=== PATIENT | male | born 1980 | race African-American/Black ===

== ENCOUNTER 2018-03-15 10:59 | Emergency (ER) | payer MEDICAID ==
[~2018-03-15] VITALS: Ht 182.9 cm; Wt 181.4 kg
[2018-03-15 11:04] VITALS: BP_SYST 117
[2018-03-15 11:41] VITALS: BP_SYST 128
== END 2018-03-15 11:41 | disposition home or self-care (01) ==
LOC: SED 10:59
DX: L02.416 Cutaneous abscess of left lower limb (principal); E11.9 Type 2 diabetes mellitus without complications; F17.200 Nicotine dependence, unspecified, uncomplicated
CPT/HCPCS: 99283

== ENCOUNTER 2018-03-15 20:06 | Emergency (ER) | payer MEDICAID ==
[~2018-03-15] VITALS: Ht 182.9 cm; Wt 181.4 kg
[2018-03-15 20:16] VITALS: BP_SYST 179
[2018-03-15] MEDS ORDERED: LIDOCAINE/EPI 1% 1:100000 20 ML VIAL INJ ONE (20:30)
[2018-03-15 21:26] VITALS: BP_SYST 148
== END 2018-03-15 21:26 | disposition home or self-care (01) ==
LOC: SED 20:06
DX: L02.416 Cutaneous abscess of left lower limb (principal); R03.0 Elevated blood-pressure reading, without diagnosis of hypertension; E11.9 Type 2 diabetes mellitus without complications
CPT/HCPCS: 99284

== ENCOUNTER 2018-03-17 18:32 | Emergency (ER) | payer MEDICAID ==
[~2018-03-17] VITALS: Ht 182.9 cm; Wt 181.4 kg
[2018-03-17 18:41] VITALS: BP_SYST 159
[2018-03-17 20:13] VITALS: BP_SYST 144
== END 2018-03-17 20:13 | disposition home or self-care (01) ==
LOC: SED 18:32
DX: L02.416 Cutaneous abscess of left lower limb (principal); E11.9 Type 2 diabetes mellitus without complications
CPT/HCPCS: 99282

== ENCOUNTER 2018-03-20 08:59 | Emergency (ER) | payer MEDICAID ==
[~2018-03-20] VITALS: Ht 182.9 cm; Wt 181.4 kg
[2018-03-20 09:03] VITALS: BP_SYST 159
== END 2018-03-20 09:27 | disposition home or self-care (01) ==
LOC: SED 08:59
DX: L02.416 Cutaneous abscess of left lower limb (principal); E11.9 Type 2 diabetes mellitus without complications; E66.01 Morbid (severe) obesity due to excess calories; Z68.43 Body mass index [BMI] 50.0-59.9, adult
CPT/HCPCS: 99282

== ENCOUNTER 2023-12-26 20:34 | Inpatient (IN) | payer BC, MEDICAID, OTHER ==
[~2023-12-26] VITALS: Ht 182.9 cm; Wt 154.2 kg
[2023-12-26 20:53] VITALS: BP_SYST 153; PULSE 108; RESP 18; TEMP 98; O2SAT 98
[2023-12-26 22:24] LABS: BASOPHILS # (AUTO) 0.1 K/uL (0.0-0.2); BASOPHILS % (AUTO) 0.6 % (0.0-2.0); EOSINOPHILS # (AUTO) 0.2 K/uL (0.0-0.4); EOSINOPHILS % (AUTO) 1.3 % (0.0-4.0); HEMATOCRIT 37.1 % (36-54); HEMOGLOBIN 12.7 g/dL (14.0-18.0); LYMPHOCYTES # (AUTO) 2.3 K/uL (1.0-5.5); LYMPHOCYTES % (AUTO) 17.3 % (20.5-51.5); MEAN CORPUSCULAR HEMOGLOBIN 29 pg (27-31); MEAN CORPUSCULAR HGB CONC 34 % (32-36); MEAN CORPUSCULAR VOLUME 85 fL (79.0-98.0); MONOCYTES # (AUTO) 1.1 K/uL (0.0-1.0); MONOCYTES % (AUTO) 8.5 % (1.7-9.3); NEUTROPHILS # (AUTO) 9.5 K/uL (1.8-7.7); NEUTROPHILS % (AUTO) 72.3 % (40.0-70.0); PLATELET COUNT (AUTO) 313 K/uL (130-430); RED BLOOD CELL COUNT(AUTO) 4.39 MIL/uL (4.2-6.2); RED CELL DISTRIBUTION WIDTH 12.2 % (9.0-15.0); WHITE BLOOD COUNT (AUTO) 13.2 K/uL (4.8-10.8)
[2023-12-26] MEDS ORDERED: VANCOMYCIN HCL 1000 MG/VIAL IV ONE (22:25)
[2023-12-26 22:26] LABS: ERYTHROCYTE SEDIMENTATION RATE 71 MM/HR (0-15)
[2023-12-26] MEDS ORDERED: PIPERACILLIN/TAZOBACTAM 3.375 GM/VIAL (ZOSYN) IV ONE (22:27)
[2023-12-26] MEDS: NACL 0.9% 1,000 ML IV ONE (22:31)
[2023-12-26 22:33] LABS: ALBUMIN 3.1 g/dL (3.4-4.8); CALCIUM 8.6 mg/dL (8.4-11.0); CREATININE 0.7 mg/dL (0.55-1.30); POTASSIUM 4.4 mmol/L (3.5-5.1); TOTAL BILIRUBIN 0.5 mg/dL (0.0-1.0); TOTAL PROTEIN, SERUM 7.7 g/dL (6.4-8.3)
[2023-12-26] MEDS: PIPERACILLIN/TAZO 3.375 GM in NS 50 ML IV ONE (22:38)
[2023-12-26] MEDS: VANCOMYCIN HCL 1 MG in D5W 250 ML IV ONE (23:09)
[2023-12-27] MEDS ORDERED: DEXTROSE 50% JECT 50 ML DISP.SYRIN IVP PRN
[2023-12-27] MEDS ORDERED: ACETAMINOPHEN 325 MG TABLET PO PRN
[2023-12-27] MEDS: DIPHTH,PERTUSS(ACELL),TET VAC 0.5 ML VIAL (Tdap) I.M. ONE (00:11)
[2023-12-27] MEDS ORDERED: KETOROLAC TROMETHAMINE 15 MG VIAL IVP PRN (00:15)
[2023-12-27] MEDS ORDERED: AMPICILLIN SODIUM/SULBACTAM NA 3 GM VIAL ONE ×2 (05:25)
[2023-12-27] MEDS: AMPICILLIN SODIUM/SULBACTAM NA 3 GM in NS 100 ML IV SCH (06:00)
[2023-12-27] MEDS ORDERED: INSULIN REGULAR, HUMAN 10 UNITS/0.1 ML, 3 ML VIAL ONE ×2 (07:05→17:56)
[2023-12-27] MEDS: INSULIN REGULAR, HUMAN 100 UNITS/ML, 3 ML VIAL (humuLIN R) SUBCUT PRN (07:08)
[2023-12-27] MEDS: metFORMIN HCL 500 MG TABLET PO SCH (07:55)
[2023-12-27] MEDS: ENOXAPARIN SODIUM 40 MG/0.4 ML SYRINGE SUBCUT ONE (12:17)
[2023-12-27 14:21] LABS: BILIRUBIN,URINE NEGATIVE (NEGATIVE); BLOOD, URINE NEGATIVE (NEGATIVE); CLARITY/URINE CLEAR (CLEAR); COLOR,URINE YELLOW (YELLOW); GLUCOSE,URINE 3+ (NEGATIVE); KETONES,URINE 2+ (NEGATIVE); LEUKOCYTE ESTERASE ,URINE NEGATIVE (NEGATIVE); NITRITE, URINE NEGATIVE (NEGATIVE); PH,URINE 6.5 (5.0-8.0); PROTEIN URINE NEGATIVE (NEGATIVE)
[2023-12-27 14:48] LABS: INR 1.1 (0.80-1.20); PROTHROMBIN TIME 11.6 SECS (9.5-12.5)
[2023-12-27 15:01] LABS: BACTERIA,URINE None Seen /HPF (None Seen); MUCUS,URINE 1+ /LPF (None Seen); RBC,URINE 0-3 /HPF (0-3); WBC,URINE 0-3 /HPF (0-3)
[2023-12-27 17:25] LABS: CHOLESTEROL 164 mg/dL (<200); HDL CHOLESTEROL 39 mg/dL (>45); TRIGLYCERIDES 89 mg/dL (30-150)
[2023-12-27] MEDS ORDERED: METF-380 PO (17:48)
[2023-12-27] MEDS ORDERED: DOXY100C5 PO (17:49)
[2023-12-27] MEDS ORDERED: CEPH-548 PO (17:51)
[2023-12-27 18:16] LABS: CALCIUM 8.3 mg/dL (8.4-11.0); CREATININE 0.67 mg/dL (0.55-1.30); POTASSIUM 4.3 mmol/L (3.5-5.1)
[2023-12-27 18:21] LABS: BASOPHILS # (AUTO) 0.1 K/uL (0.0-0.2); BASOPHILS % (AUTO) 0.5 % (0.0-2.0); EOSINOPHILS # (AUTO) 0.2 K/uL (0.0-0.4); EOSINOPHILS % (AUTO) 2.1 % (0.0-4.0); HEMATOCRIT 36.6 % (36-54); HEMOGLOBIN 12.7 g/dL (14.0-18.0); LYMPHOCYTES # (AUTO) 2.9 K/uL (1.0-5.5); LYMPHOCYTES % (AUTO) 28.2 % (20.5-51.5); MEAN CORPUSCULAR HEMOGLOBIN 29 pg (27-31); MEAN CORPUSCULAR HGB CONC 35 % (32-36); MEAN CORPUSCULAR VOLUME 84 fL (79.0-98.0); MONOCYTES # (AUTO) 0.9 K/uL (0.0-1.0); MONOCYTES % (AUTO) 8.9 % (1.7-9.3); NEUTROPHILS # (AUTO) 6.3 K/uL (1.8-7.7); NEUTROPHILS % (AUTO) 60.3 % (40.0-70.0); PLATELET COUNT (AUTO) 297 K/uL (130-430); RED BLOOD CELL COUNT(AUTO) 4.35 MIL/uL (4.2-6.2); RED CELL DISTRIBUTION WIDTH 12.2 % (9.0-15.0); WHITE BLOOD COUNT (AUTO) 10.4 K/uL (4.8-10.8)
[2023-12-27] MEDS: ENOXAPARIN SODIUM 40 MG/0.4 ML SYRINGE SUBCUT SCH (20:37)
[2023-12-27 22:19] VITALS: BP_SYST 153; PULSE 78; RESP 18; TEMP 98.3; O2SAT 97
[2023-12-27] MEDS: traMADol HCL HCL 50 MG TABLET (ULTRAM) PO PRN (22:35)
[2023-12-27 22:52] VITALS: O2SAT 97
[2023-12-27] MEDS: AMPICILLIN SODIUM/SULBACTAM NA 3 GM VIAL ONE (23:39)
[2023-12-28] VITALS: BP_SYST 148; PULSE 75; RESP 18; TEMP 98.1; O2SAT 98
[2023-12-28 03:00] VITALS: BP_SYST 144; PULSE 76; RESP 18; TEMP 97.6; O2SAT 97
[2023-12-28 05:41] LABS: BASOPHILS # (AUTO) 0.1 K/uL (0.0-0.2); BASOPHILS % (AUTO) 0.6 % (0.0-2.0); EOSINOPHILS # (AUTO) 0.2 K/uL (0.0-0.4); EOSINOPHILS % (AUTO) 2.8 % (0.0-4.0); HEMATOCRIT 35.9 % (36-54); HEMOGLOBIN 12.4 g/dL (14.0-18.0); LYMPHOCYTES # (AUTO) 2.5 K/uL (1.0-5.5); LYMPHOCYTES % (AUTO) 28.8 % (20.5-51.5); MEAN CORPUSCULAR HEMOGLOBIN 29 pg (27-31); MEAN CORPUSCULAR HGB CONC 35 % (32-36); MEAN CORPUSCULAR VOLUME 85 fL (79.0-98.0); MONOCYTES # (AUTO) 0.8 K/uL (0.0-1.0); NEUTROPHILS # (AUTO) 5.2 K/uL (1.8-7.7); NEUTROPHILS % (AUTO) 58.8 % (40.0-70.0); PLATELET COUNT (AUTO) 320 K/uL (130-430); RED BLOOD CELL COUNT(AUTO) 4.23 MIL/uL (4.2-6.2); RED CELL DISTRIBUTION WIDTH 11.9 % (9.0-15.0); WHITE BLOOD COUNT (AUTO) 8.8 K/uL (4.8-10.8)
[2023-12-28 06:24] LABS: ALBUMIN 2.6 g/dL (3.4-4.8); CALCIUM 8.1 mg/dL (8.4-11.0); CREATININE 0.65 mg/dL (0.55-1.30); POTASSIUM 4.3 mmol/L (3.5-5.1); TOTAL BILIRUBIN 0.4 mg/dL (0.0-1.0); TOTAL PROTEIN, SERUM 6.8 g/dL (6.4-8.3)
== END 2023-12-28 08:10 | disposition home or self-care (01) | DRG 603 ==
LOC: SED 20:34 → SMU 23:07
PROVIDERS: ADMIT Internal Medicine; ATTEND Internal Medicine
DX: L03.116 Cellulitis of left lower limb (principal); Z68.42 Body mass index [BMI] 45.0-49.9, adult; E66.01 Morbid (severe) obesity due to excess calories; E11.9 Type 2 diabetes mellitus without complications; Z79.899 Other long term (current) drug therapy
CPT/HCPCS: 36415; 71045; 80048; 80053; 80061; 81000; 81001; 81015; 82948; 83037; 83605; 85025; 85610; 85651; 85730; 87040; 87070; 87075; 90715; 93971; 96365; 96368; 99285; J0295; J1650; J1815; J2543; J3370

== ENCOUNTER 2024-07-17 20:14 | Emergency (ER) | payer OTHER ==
[~2024-07-17] VITALS: Ht 182.9 cm; Wt 153.3 kg
[~2024-07-17 20:14] MED LIST: CEPH-548 PO; DOXY100C5 PO; METF-380 PO
[2024-07-17 21:14] VITALS: BP_SYST 140; PULSE 83; RESP 18; TEMP 98; O2SAT 96
[2024-07-17] MEDS: PIPERACILLIN/TAZO 3.375 GM in NS 50 ML IV ONE (23:35)
[2024-07-17] MEDS ORDERED: PIPERACILLIN/TAZOBACTAM 3.375 GM/VIAL (ZOSYN) IV ONE (23:37)
[2024-07-18] MEDS ORDERED: CLIN-142 PO (00:16)
[2024-07-18 01:02] VITALS: BP_SYST 119; PULSE 77; RESP 22; TEMP 97.9; O2SAT 98
== END 2024-07-18 00:25 | disposition home or self-care (01) ==
LOC: SED 20:14
DX: E11.621 Type 2 diabetes mellitus with foot ulcer (principal); Z79.899 Other long term (current) drug therapy; Z79.2 Long term (current) use of antibiotics
CPT/HCPCS: 99284; 96365; 87040; 36415; 73660; J2543

== ENCOUNTER 2024-07-20 22:00 | Emergency (ER) | payer OTHER ==
[~2024-07-20] VITALS: Ht 182.9 cm; Wt 152.0 kg
[~2024-07-20 22:00] MED LIST changes: +CLIN-142 PO
[2024-07-20 22:13] VITALS: BP_SYST 165; PULSE 83; RESP 20; TEMP 97.9; O2SAT 100
[2024-07-21] MEDS: MORPHINE 4 MG INJ. 4 MG/ML VIAL IVP ONE (00:17)
[2024-07-21] MEDS: ONDANSETRON HCL 4 MG/2 ML VIAL IVP ONE (00:18)
[2024-07-21 01:05] LABS: ALANINE AMINOTRANSFERASE 21 U/L (12-78); ANION GAP 11 (5-15); ASPARTATE AMINOTRANSFERASE 22 U/L (10-37); BILIRUBIN,DIRECT 0.2 mg/dL (0.0-0.3); CARBON DIOXIDE 24 mmol/L (23-29); CHLORIDE 101 mmol/L (98-107); CREATININE 1.04 mg/dL (0.55-1.30); GFR AFRICAN AMERICAN 100 mL/min (>90); GLUCOSE 113 mg/dL (74-106); LIPASE 26 U/L (16-77); POTASSIUM 4.4 mmol/L (3.5-5.1); SODIUM SERUM 136 mmol/L (136-145); TOTAL BILIRUBIN 0.6 mg/dL (0.0-1.0); TOTAL PROTEIN, SERUM 7.9 g/dL (6.4-8.3); UREA NITROGEN, BLOOD 16 mg/dL (8-21)
[2024-07-21 01:09] LABS: ALCOHOL, BLOOD < 3 mg/dL (<10); GFR NON AFRICAN-AMERICAN 83 mL/min (>90)
[2024-07-21 01:10] LABS: BASOPHILS % (AUTO) 0.3 % (0.0-2.0); EOSINOPHILS % (AUTO) 0.1 % (0.0-4.0); HEMATOCRIT 40.8 % (36-54); HEMOGLOBIN 14.2 g/dL (14.0-18.0); LYMPHOCYTES # (AUTO) 1.1 K/uL (1.0-5.5); LYMPHOCYTES % (AUTO) 10.3 % (20.5-51.5); MEAN CORPUSCULAR HEMOGLOBIN 30 pg (27-31); MEAN CORPUSCULAR HGB CONC 35 % (32-36); MEAN CORPUSCULAR VOLUME 87 fL (79.0-98.0); MONOCYTES # (AUTO) 0.5 K/uL (0.0-1.0); MONOCYTES % (AUTO) 4.6 % (1.7-9.3); NEUTROPHILS # (AUTO) 9.1 K/uL (1.8-7.7); NEUTROPHILS % (AUTO) 84.7 % (40.0-70.0); PLATELET COUNT (AUTO) 284 K/uL (130-430); RED CELL DISTRIBUTION WIDTH 13.5 % (9.0-15.0); WHITE BLOOD COUNT (AUTO) 10.8 K/uL (4.8-10.8)
[2024-07-21] MEDS: MAG HYDROX/AL HYDROX/SIMETH 30 ML, DICYCLOMINE HCL 20 MG, LIDOCAINE VISCOUS 2% 15ML (PO... PO ONE (02:59)
[2024-07-21] MEDS: PANTOPRAZOLE SODIUM 40 MG/VIAL (PROTONIX) IVP ONE (03:46)
[2024-07-21 03:50] LABS: BILIRUBIN,URINE NEGATIVE (NEGATIVE); BLOOD, URINE NEGATIVE (NEGATIVE); CLARITY/URINE CLEAR (CLEAR); COLOR,URINE YELLOW (YELLOW); GLUCOSE,URINE 3+ (NEGATIVE); KETONES,URINE 2+ (NEGATIVE); LEUKOCYTE ESTERASE ,URINE NEGATIVE (NEGATIVE); NITRITE, URINE NEGATIVE (NEGATIVE); PROTEIN URINE NEGATIVE (NEGATIVE); UROBILINOGEN,URINE 0.2 (0.2-1.0)
[2024-07-21 04:06] LABS: BARBITURATE, URINE NEGATIVE (NEG <=200); BENZODIAZEPINE, URINE NEGATIVE (NEG <=150); METHAMPHETAMINES SCREEN,URINE NEGATIVE (NEG <=500); URINE AMPHETAMINE NEGATIVE (NEG <=500); URINE METHADONE NEGATIVE (NEG <=200)
[2024-07-21 04:07] LABS: CANNABINOID, URINE NEGATIVE (NEG <=50); COCAINE, URINE NEGATIVE (NEG <=150); OPIATE, URINE POSITIVE (NEG <=100); PHENCYCLIDINE SCREEN,URINE NEGATIVE (NEG <=25); UR TRICYCLIC ANTIDEPRESSANTS NEGATIVE (NEG <=300); URINE OXYCODONE SCREEN NEGATIVE (NEG <=100)
[2024-07-21 04:32] LABS: BACTERIA,URINE RARE /HPF (None Seen); RBC,URINE 0-3 /HPF (0-3); WBC,URINE 0-3 /HPF (0-3)
[2024-07-21] MEDS: KETOROLAC TROMETHAMINE 30 MG VIAL IVP ONE (04:51)
[2024-07-21] MEDS ORDERED: DOXY100C5 PO (05:01)
[2024-07-21] MEDS ORDERED: ONDA-8 TL (05:01)
[2024-07-21] MEDS ORDERED: DICY10SO PO (05:01)
[2024-07-21] MEDS ORDERED: PANT20TA2 PO (05:01)
[2024-07-21 05:55] VITALS: BP_SYST 145; PULSE 91; RESP 20; TEMP 97.7; O2SAT 96
== END 2024-07-21 05:24 | disposition home or self-care (01) ==
LOC: SED 22:00
DX: R10.84 Generalized abdominal pain (principal); E11.621 Type 2 diabetes mellitus with foot ulcer; R11.2 Nausea with vomiting, unspecified; I10 Essential (primary) hypertension; F17.200 Nicotine dependence, unspecified, uncomplicated; Z79.899 Other long term (current) drug therapy; Z79.2 Long term (current) use of antibiotics
CPT/HCPCS: 99285; 80307; 80076; 80048; 83690; 85025; 84484; 36415; 81001; 74176; 96374; 96375; 93005; G0482; J2003; J1885; J2405; J2470; J2270; 81000; 81015